=== PATIENT | female | born 1940 | race Caucasian/White ===

== ENCOUNTER → 2019-10-28 | Outpatient (CLI) | payer MEDICARE ==
--- NOTE | 2019-10-28 16:16 | Diagnostic Imaging Report ---
Exam: KUB - 2 views Indication: Abdominal Pain Comparison: None Findings: Nonobstructive bowel gas pattern. No free air. Surgical clips in the right upper quadrant. No radiographic apparent urinary calculi. Atherosclerotic arterial calcifications. No acute osseous injury. Degenerative changes of the visualized spine. Impression: Nonobstructive bowel gas pattern. No free air. Signed by: Gordon Shields MD on 10/28/2019 4:12 PM
== END ==
LOC: RAD 13:01
DX: R10.9 Unspecified abdominal pain (principal); R19.00 Intra-abdominal and pelvic swelling, mass and lump, unspecified site
CPT/HCPCS: 74018